=== PATIENT | female | born 1995 | race Two or more races ===

== ENCOUNTER 2019-02-21 23:46 | Emergency (ER) | payer MEDICAID ==
[~2019-02-21] VITALS: Ht 170.2 cm; Wt 108.9 kg
[2019-02-22 00:06] VITALS: BP 128/87
[2019-02-22] MEDS ORDERED: METHOCARBAMOL 500 MG TAB PO ONE (03:30)
[2019-02-22] MEDS ORDERED: IBUPROFEN 800 MG TAB PO ONE (03:30)
== END 2019-02-22 03:29 | disposition home or self-care (01) ==
LOC: ER 23:50
DX: S30.1XXA Contusion of abdominal wall, initial encounter (principal); M79.644 Pain in right finger(s); V43.52XA Car driver injured in collision with other type car in traffic accident, initial encounter; Y93.I9 Activity, other involving external motion; Y92.488 Other paved roadways as the place of occurrence of the external cause; Y99.8 Other external cause status
CPT/HCPCS: 73140; 74176; 81025